=== PATIENT | male | born 1955 ===

== ENCOUNTER 2018-05-29 07:35 | Outpatient (CLI) | payer OTHER | END 2018-05-29 07:36 | disposition home or self-care (01) | LOC: C.LAB 07:35 | DX: M06.9 Rheumatoid arthritis, unspecified (principal); M10.9 Gout, unspecified; M19.90 Unspecified osteoarthritis, unspecified site; Z00.00 Encounter for general adult medical examination without abnormal findings; M25.531 Pain in right wrist; Z68.22 Body mass index [BMI] 22.0-22.9, adult ==

== ENCOUNTER 2018-06-19 14:04 | Outpatient (CLI) | payer OTHER | END 2018-06-19 14:05 | disposition home or self-care (01) | LOC: C.MRIC 14:04 ==

== ENCOUNTER 2018-06-29 07:23 | Outpatient (CLI) | payer OTHER | END 2018-06-29 07:24 | disposition home or self-care (01) | LOC: C.LAB 07:23 ==

== ENCOUNTER 2018-07-15 06:32 | Day surgery (SDC) | payer OTHER ==
[2018-06-29 07:48] VITALS: BMI 20.3
[2018-07-15] MEDS ORDERED: Propofol 10 mg/ml Inj (20 ML) ONE (08:13)
[2018-07-15] MEDS ORDERED: Midazolam 2 MG/2 ML VIAL ONE (08:13)
[2018-07-15] MEDS ORDERED: ceFAZolin 1 gm in NS 1 GM/100 ML BAG IVPB ONE (08:23)
[2018-07-15] MEDS ORDERED: Morphine 4 MG/ML VIAL ONE (09:44)
[2018-07-15] MEDS ORDERED: Bupivacaine HCl 0.5% PF (10 ml) Inj ONE (10:13)
[2018-07-15] MEDS ORDERED: HYDROmorphone 0.5 mg/0.5 ml ISec IVP PRN (10:36)
--- NOTE | 2018-07-15 10:48 | PCM.SURG1 ---
Surgeon's Initial Post Op Note - Surgeon's Notes Surgeon: Rashad Simmons MD [employer] Rep: Liana Vargas PA-C Type of Anesthesia: General LMA Anesthesia Administered By: Dr. 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 Right ulnar head resection. 2. Extensor tendon transfer. 3. Right 2nd MCP joint capsulodesis. 4. Volar splint application Specimen/Specimens Removed: ulnar head Estimated Blood Loss: EBL {In ML}: 2 Blood Products Given: N/A Drains Used: No Drains Post-Op Condition: Fair Date of Surgery/Procedure: 07/15/18 Time of Surgery/Procedure: 10:50
[2018-07-15] MEDS ORDERED: Oxycodone/Acetaminophen 5/325 mg Tab PO PRN (10:51)
[2018-07-15 11:30] VITALS: O2SAT 100
[2018-07-15 12:58] VITALS: BP 112/70; PULSE 77; RESP 18; TEMP 98
--- NOTE | 2018-07-15 17:03 | RAD ---
PROCEDURE: Right Hand Radiographs. HISTORY: pt in pacu, s/p ulnar head resection and 2nd MCPjt COMPARISON: 03/26/2018 FINDINGS: BONES: There has been correction of previous subluxation at the 2nd MCP. Status post resection of distal ulna. No acute fracture. JOINTS: Resolved subluxation MCP tube. SOFT TISSUES: Normal. OTHER FINDINGS: None. IMPRESSION: Resection distal ulna and realignment MCP 2.
--- NOTE | 2018-07-30 00:36 | OP ---
PROCEDURE DATE: 07/15/2018 SURGEON: Dayron Simmons MD DRY BOSS: KERRI Schwarz PREOPERATIVE DIAGNOSES: 1. Extensor tendon ruptures of right ring and small fingers. 2. Extensor tenosynovitis right fourth, fifth and sixth compartments. 3. Distal radioulnar joint disruption at the right wrist. POSTOPERATIVE DIAGNOSES: 1. Extensor tendon ruptures of right ring and small fingers. 2. Extensor tenosynovitis right fourth, fifth and sixth compartments. 3. Distal radioulnar joint disruption at the right wrist. PROCEDURES: 1. Tendon transfer extensor digitorum of the ring and small finger to the long finger, 58874. 2. [id number] extensor tendon transfer of the second, third and fourth finger, 12020. 3. Distal ulnar head excision, 68419. 4. ECU tendon transfer with distal radioulnar joint reconstruction, 35991. 5. Extensor tenosynovial debridement and tenosynovectomy of the fourth, fifth, and sixth compartments, right wrist. 6. Arthrotomy of the metacarpophalangeal joint of the index finger with synovectomy, 80117. 7. Extensor tendon realignment of the index finger, 64497. ANESTHESIA: General. BLOOD LOSS: Minimal. SPECIMEN: Tenosynovium. COMPLICATIONS: None. DESCRIPTION OF PROCEDURE: The patient was brought to the operating room and placed supine on the operating room table. After regional and general anesthesia was given, a well-padded tourniquet was placed on the patient's right upper extremity. The entire extremity was then prepped and draped in a standard surgical fashion and timeout was performed. A longitudinal incision was made over the dorsal ulnar aspect of the hand centered over the long finger metacarpal proximal to the distal radioulnar joint. The arm was elevated and exsanguinated. Tourniquet was inflated to 250 mmHg. Incision was made through the skin only. All superficial veins were cauterized. Flaps were then elevated. Tenosynovial mass was then identified distal to the extensor retinaculum. It was incised. Severe tenosynovitis was then identified. The retinaculum was also incised and all tendons were inspected. Upon inspection, there was a complete tear of the extensor tendon to the fourth and fifth fingers with retraction. The fourth, fifth and sixth extensor compartment were incised and complete tenosynovectomy was performed. There was extensive and severe synovitis of tendons. With the use of tenotomy scissors and curette, the stumps of the ring and small finger extensors were identified distally and tagged for later repair. After extensive debridement of all dependence and flow of the fourth, fifth and sixth compartments. Attention was then directed to the distal radioulnar joint. Extensor tendons were retracted radially. The ulnar head was protruding through the floor of the fourth compartment. Capsule flaps were created allowing for exposure. Severe rheumatological changes of the disease was seen on the head of the distal ulna. The distal radioulnar joint was completely disrupted. The head was then excised using micro sagittal saw and osteotomes. The edges of proximal stump of the ulna was smooth. A hunter was then used to drill bone tunnel in the distal ulna. Work was then began on reconstructing the DRUJ ligaments. Part of the ECU tendon was incised longitudinally and freed proximally from the tendon. The distal attachment was intact. The of the ECU tendon was then passed over the bone tunnel, then secured to itself while holding the distal ulna reduced with volar directed force. This created a secured suspensionplasty for the distal ulna. The ECU tendon was then repaired side to side with multiple 4-0 nylon sutures and 4-0 Vicryl sutures. This reconstructed the DRUJ preventing the ulnar stump from dorsal displacement. Work was then began on repairing the fourth and fifth extensor tendons. The distal stumps were identified and cleaned to good healthy tissue. The small and ring finger extensors were woven in a Pulvertaft tightly through the long finger extensor. This was secured with multiple buried interrupted 4-0 nylon sutures. As noted previously the long finger itself was tenuous. A residual stump distally as well as the extensor digitorum communis to the index finger were woven into the mass side to side with multiple interrupted 4-0 nylon sutures. The bone was tested multiple times and the position of the wrist flexion and extension passively was good. The capsule over the resected ulna was then repaired side to side with multiple 4-0 Vicryl sutures. The extensor retinaculum was also repaired with multiple 4-0 Vicryl sutures. The wound was copiously irrigated. Work was then began on realigning of index MCP joint and extensor tendon. The finger had significant ulnar drift at the MCP level. Dorsal incision over the MCP was outlined and made through the skin. Dissection was carried down to identify the extensor tendon. Arthrotomy was then made over the MCP joint and local synovectomy of the joint was performed with rongeur and curettes. Capsulodesis was then performed by tightening the capsule on the radial side of the joint. This realigned the extensor tendon more centrally over the knuckle area. The sagittal bands were repaired with capsule using 4-0 Vicryl sutures. The skin was then closed with 4-0 nylon suture. The wound to the dorsum of the wrist was also closed with multiple interrupted 4-0 nylon sutures for the skin. Sterile dressing was then applied of fluffs, 4x4, Maddy, and plaster splint. The patient tolerated the procedure well and returned to the recovery room in excellent condition. Dayron Simmons MD
== END 2018-07-15 16:21 | disposition home or self-care (01) ==
LOC: C.SDS 06:32
PROVIDERS: ATTEND Orthopaedic Surgery
DX: S56.415A Strain of extensor muscle, fascia and tendon of right ring finger at forearm level, initial encounter (principal); S56.417A Strain of extensor muscle, fascia and tendon of right little finger at forearm level, initial encounter; E78.00 Pure hypercholesterolemia, unspecified; M06.9 Rheumatoid arthritis, unspecified; E78.5 Hyperlipidemia, unspecified; D64.9 Anemia, unspecified; M65.9 Synovitis and tenosynovitis, unspecified
CPT/HCPCS: 25240; 25310; 25337; 26135; 26437; 26480; 73130; 88304; J0690; J1170; J2250; J2270; J2405; J2704; J3010

== ENCOUNTER 2018-09-15 11:23 | Outpatient (CLI) | payer OTHER | END 2018-09-15 11:24 | disposition home or self-care (01) | LOC: C.LAB 11:23 | DX: M05.79 Rheumatoid arthritis with rheumatoid factor of multiple sites without organ or systems involvement (principal) ==